=== PATIENT | male | born 1965 | race Caucasian/White ===

== ENCOUNTER 2022-12-02 15:41 | Emergency (ER) | payer BC, SELFPAY ==
[2022-12-02 15:51] VITALS: BP 171/98; PULSE 71; RESP 18; TEMP 36.4; O2SAT 96; BMI 42.7
--- NOTE | 2022-12-02 16:28 | ED_ITS ---
HPI - General Adult General Chief complaint: Lower Extremity Swelling Stated complaint: Intense pain in the back left knee Time Seen by Provider: 12/02/22 15:49 Source: patient Mode of arrival: ambulatory Limitations: no limitations History of Present Illness HPI narrative: 57-year-old male coming in today complaining of knee pain. Patient states that on Monday which is 3 days ago, he stood up off of his chair and had sudden pain in the back of the left knee. Pain is located laterally on the back of the knee and he has some shooting pain that comes and goes down the lateral calf does not reach the ankle. No other injury. He denies any swelling of that leg. He is not short of breath or coughing. He denies any recent travel or surgery. He was seen by a provider yesterday who recommended NSAIDs. He does have an appointment with Orthopedics scheduled for this coming Monday. He felt tired of dealing with the pain and presented to the ER today. Related Data Home Medications Medication Instructions Recorded Confirmed amoxicillin 875 mg-potassium 1 tab PO Q12H 12/02/22 12/02/22 clavulanate 125 mg tablet apixaban 2.5 mg tablet (Eliquis) mg 12/02/22 Allergies Allergy/AdvReac Type Severity Reaction Status Date / Time No Known Drug Allergies Allergy Verified 12/02/22 16:00 Review of Systems Status of ROS: Reports: 6 or more systems reviewed and unremarkable except as noted in History and below Exam Narrative: Exam Narrative: Morbidly obese, well-developed patient in no acute distress. Alert and or iented. Answers questions appropriately. Mood and affect are appropriate. HEENT: Normocephalic atraumatic. Pupils are equally round reactive to light. Extraocular muscles are intact. Conjunctivae are moist without any icterus noted. Extremities: Bilateral lower extremities are without edema. Normal DP and PT pulses. Left knee is without abnormality-there is no swelling, joint effusion, ecchymosis noted. There is no erythema or warmth. He has minimal tenderness to palpation in the posterior lateral knee. He has no tenderness over the calf, no calf swelling. He does have full range of motion with flexion and extension but does cause some discomfort. The knee is not unstable in any way-negative anterior drawer and negative valgus or varus laxity. Skin: Well perfused without any obvious rashes. Const: Vital Signs, click to edit/add: Vital Signs - 24 hr 12/02/22 15:51 Temperature 97.6 F Pulse Rate [Right Pulse Oximeter] 71 Respiratory Rate 18 Blood Pressure [Ri ght Upper Arm] 171/98 H Pulse Oximetry 96 Oxygen Delivery Me thod Room Air Course Course Hospital Course: I did consult with Orthopedics who did not feel that imaging was necessary at this time. They recommended compression, NSAIDs and follow-up as scheduled. Vital Signs Vital signs: Initial Vital Signs Temperature 97.6 F 12/02/22 15:51 Temperature Source Temporal Artery Scan 12/02/22 15:51 Pulse Rate 71 12/02/22 15:51 Respiratory Rate 18 12/02/22 15:51 Blood Pressure 171/98 H 12/02/22 15:51 Blood Pressure Mean 122 12/02/22 15:51 Blood Pressure Position Sitting 12/02/22 15:51 Pulse Oximetry 96 12/02/22 15:51 Oxygen Delivery Method 12/02/22 15:51 Vital Signs Temperature 97.6 F 12/02/22 15:51 Pulse Rate 71 12/02/22 15:51 Respiratory Rate 18 12/02/22 15:51 Blood Pressure 171/98 H 12/02/22 15:51 Pulse Oximetry 96 12/02/22 15:51 Oxygen Delivery Method 12/02/22 15:51 Temperature 97.6 F 12/02/22 15:51 Pulse Rate 71 12/02/22 15:51 Respiratory Rate 18 12/02/22 15:51 Blood Pressure 171/98 H 12/02/22 15:51 Pulse Oximetry 96 12/02/22 15:51 Oxygen Delivery Method 12/02/22 15:51 Medical Decision Making [facility] Narrative Medical decision making narrative: 57-year-old male with knee pain. Discussed compression, NSAIDs and follow up with Orthopedics. Discharge Plan Discharge Clinical Impression: Acute knee pain Patient Disposition: Home, Self-Care Condition: Stable Additional Instructions: Per orthopedic recommendations - for now continue ibuprofen and Tylenol use, ice the area as needed but do not apply ice directly to skin. Use a compression stocking. Follow up with Orthopedics on Monday. Prescriptions: No Action amoxicillin-pot clavulanate 875-125 mg tablet 1 tab PO Q12H Eliquis 2.5 mg tablet Follow Up/Referrals: Marleny Burger MD [Primary Care Provider] - Stand Alone Forms: [employer] Info Instructions
== END 2022-12-02 17:28 | disposition home or self-care (01) ==
PROVIDERS: Emergency Provider Family Medicine; PCP Family Medicine
DX: M25.562 Pain in left knee (principal)
CPT/HCPCS: 99283

== ENCOUNTER 2025-08-31 08:21 | Emergency (ER) | payer BC, SELFPAY ==
--- OUTSIDE RECORDS SUMMARY | 2025-08-31 08:23 | XMS_ITS | Data Portability ---
Author Organization [facility], [facility] Address [address] [place] [address] [address] [place], [place] [address] Care Team Providers Care Special Assets Officer Name Role Phone NORMA CHIU Primary Care Provider Assessment No assessment recorded. Plan of Treatment Reminders Order Date Submit Date Provider Last Modified By Organization Details Last Modified Time Details Appointments None recorded. Lab None recorded. Referral None recorded. Procedures None recorded. Surgeries None recorded. Imaging None recorded. Medication Orders alfuzosin ER 10 mg tablet,ext ended release 24 hr 2023 024 [facility] [id number] [employer], [facility] [address] [place], [address], 4 11:36:21 Patient TargetsNo targets recorded. Patient InstructionsNo instructions recorded. Reason for Referral None Reported. Results Created Date Observation Date Name Description Value Unit Range Abnormal Flag Note LastModifiedBy Organization Detail LastModifiedTime Result Notes None recorded. Problems Name Problem SNOMED Code Status Onset Date Resolution Date Notes Provider Name and Address Organization Details Recorded Time Lower urinary tract symptoms due to benign prostatic hypertrophy 4928454184472 1 Active 2023 Ilir Dasilva MD [address] [place] [address], [phone], [facility] 4 11:35:48 Increased frequency of urination 931099241 Active 2023 Ilir Dasilva MD [address] [place] [address], [phone], [facility] 4 11:35:57 Problem Notes None recorded. Procedures Surgical History Date Name Laterality Status Provider Name and Address Organization Details Recorded Time Bladder Scan completed Maya Marquez [facility] 10/16/2024 11:19:50 Imaging Results None recorded. Procedure Notes None recorded. Medical Equipment None Reported. Allergies No known drug allergies Medications Name Sig Start Date Stop Date Status Note LastModified by Organization Details LastModified Time lisinopril 20 mg tablet TAKE 1 TABLET BY MOUTH EVERY DAY 10/16 completed Not Available Not Available Not Available amlodipine 5 mg tablet TAKE 1 TABLET BY MOUTH EVERY DAY active Not Available Not Available No t Available methylpredn isolone 4 mg tablets in a dose pack TAKE 6 TABLETS ON DAY 1 DIRECTED ON PACKAGE AND DECREASE BY 1 TAB EACH DAY FOR A TOTAL OF 6 DAYS 10/16 completed Not Available Not Available Not Available lisinopril 40 mg tablet TAKE 1 TABLET BY MOUTH EVERY DAY active Not Available Not Available No t Available alfuzosin ER 10 mg tablet,exte nded release 24 hr Take 1 tablet every day by oral route in the evening. 2023 active Not Available Not Available Not Avai lable Eliquis 2.5 mg tablet active Not Available Not Available No t Available Vitals Date Recorded Body height Body mass index (BMI) Body weight Provider Name and Address Organization Details Last Updated DateTime 10/16/2024 190.5 cm 42.5 kg/m2 171995.41 g Maya Marquez [facility] 10/16/2024 11:20:13 Social History Question Answer Notes LastModified by Organizat ion Details LastModified Time Tobacco Smoking Status Never Smoker Maya lundy [facility] 10/16/2024 11:21:27 What Is Your Level Of Caffeine Consumption? Occasional Information not available 10/16/2024 What Was The Date Of Your Most Recent Tobacco Screening? 10/16/2024 Information not available 10/16/2024 Have You Ever Been Counseled For Unhealthy Alcohol Use? No Information not available 10/16/2024 Has Tobacco Cessation Counseling Been Provided? No Information not available 10/16/2024 How Many Days In The Past Year Have You Consumed 5 Or More Drinks? 0 Information not available 10/16/2024 Sex: Unknown Functional Status Question Answer Note LastModified by Organizat ion Details LastModified Time Do you use any illicit or recreational drugs? No Information not available 10/16/2024 Do you or have you ever used any other forms of tobacco or nicotine? No Information not available 10/16/2024 What is your level of alcohol consumption? Occasional Information not available 10/16/2024 Mental Status None recorded. Family History Relationship Description Onset Age of this Age Resolved Age Notes LastModified by Organization Details LastModified Time Father Neoplasm of lung [email or web address] Not available 2023 11:21:07 Medical History Condition Response Sexually Transmitted Infection N Diabetes N Other N Bleeding Disorder N High Blood Pressure Y Kidney Stones N High Cholesterol Y GERD/Acid Reflux N Heart Disease Y Cancer N Lung Disease N Depression N Immunizations Vaccine Type Date Status Note Provider Nam e and Address Organization Details Recorded Time Influenza, split virus, quadrivalent, preservative 0 completed Maya lundy [facility] 10/16/2024 11:20:20 Influenza, MDCK, quadrivalent, preservative 1 completed Maya lundy [facility] 10/16/2024 11:20:20 Influenza, MDCK, quadrivalent, preservative 2 completed Maya lundy [facility] 10/16/2024 11:20:20 COVID-19, mRNA, LNP-S, PF, 100 mcg/0.5mL dose or 50 mcg/0.25mL dose 1 completed Maya lundy [facility] 10/16/2024 11:20:20 COVID-19, mRNA, LNP-S, PF, 100 mcg/0.5mL dose or 50 mcg/0.25mL dose 1 completed Maya lundy [facility] 10/16/2024 11:20:20 COVID-19, mRNA, LNP-S, PF, 100 mcg/0.5mL dose or 50 mcg/0.25mL dose 1 completed Maya lundy [facility] 10/16/2024 11:20:20 Tdap 9 completed Jasonzera Alma lundy, [facility] 10/16/2024 11:20:20 Influenza, split virus, trivalent, preservative 4 completed Dezera Renaeracki nikkie, [facility] 10/16/2024 11:20:20 Td (adult), 2 Lf tetanus toxoid, preservative free, adsorbed 9 completed Jasonzershayan lundy, [facility] 10/16/2024 11:20:20 Influenza, split virus, quadrivalent, PF 3 completed Jasonzershayan lundy, [facility] 10/16/2024 11:20:20 Past Encounters Encounter ID Performer Location Encounter Start Date Encounter Closed Date Diagnosis/Indication Diagnosis SNOMED-CT Code Diagnosis ICD10 Code Diagnosis IMO Codes Diagnosis Note [id number] Ilir Dasilva MD [facility] [address] [facility],[address] [place] [address] 10/16/2024 10:28:07 10/21/2024 10:12:54 Lower urinary tract symptoms due to benign prostatic hypertrophy 5255359631 9101 N40.1 - He has a mixture of obstructiv e and irritative /bladder symptoms.- Prostate is mildly enlarged on exam-Advis ed we start with an alpha-bloc ker, alfuzosin 10 mg daily, and discussed common side effects.-H e was advised to call me in 3 to 4 weeks if he is not seeing improvemen t, and we could consider switching to a medication for overactive bladder, such as Gemtesa or Myrbetriq. -Return to clinic 1 year with PVR, AUA symptom score, sooner as needed Increased frequency of urination 767687759 R35.0 Health Concerns Section Related Observation LastModified by Organization Detai ls LastModified Time None Recorded Concern Status LastModified by Organization Details LastModified Time None Recorded Advance Directives Directive None Recorded Payers Insurance Date Sequence Insurance Name Policy Number Policy Santana Covered Member ID Santana Member ID Guarantor Name 10/21/2024 1 [place] LEYVA (PPO) [id number] Clair Rodriguez [id number] Tim Rodriguez Notes Date Note Type Note Provider Name and Address Organization Details Recorded Time 10/16/2024 text/html New patient referred for chronic urinary symptoms. I reviewed the most recent clinic note from Dr. Burger with [facility] in [place] dated 09/26/2024. He reports chronic symptoms of urinary frequency about every 2 hours, sometimes worse, occasional urgency, weak stream, but denies any straining to void or incontinence. He drinks about 1 cup of coffee every 2 days and does not drink any soda currently. No family history of prostate cancer. No history of diabetes. He weighs 340 pounds. He is on long-term Eliquis for history of blood clot. Recent PSA was 1.51 on 01/30/2024. Urinalysis was normal on 09/26/2024. AUA symptom score today 15, bother 3. Postvoid residual 105 mL. Ilir Dasilva MD [address] [place] [address],[address], [place], [address], [facility] 10/16/2024 13:06:00
--- OUTSIDE RECORDS SUMMARY | 2025-08-31 08:23 | XMS_ITS | Clinical Summary ---
Author Organization [facility] Address [facility] [place] [address] Care Team Providers Care Channel Worker Name Role Phone Marleny Burger MD Primary Care Provide r Allergies No known active allergies Medications apixaban (Eliquis) 2.5 mg tabletIndications: deep venous thrombosis Take 1 Tablet (2.5 mg) by mouth two times daily. 180 Tablet 3 12/26/19 25 Active rosuvastatin 10 mg tabletIndications: Hyperlipidemia, unspecified hyperlipidemia type Take 1 Tablet (10 mg) by mouth at bedtime. 90 Tablet 3 02/21/20 25 Active amLODIPine (NORVASC) 5 mg tabletIndications: HTN (hypertension) Take 1 Tablet (5 mg) by mouth once daily. 90 Tablet 08/30/20 25 Active lisinopriL (PRINIVIL; ZESTRIL) 40 mg tabletIndications: HTN (hypertension) Take 1 Tablet (40 mg) by mouth once daily. 90 Tablet 08/30/20 25 Active amLODIPine (NORVASC) 5 mg tabletIndications: HTN (hypertension) Take 1 Tablet (5 mg) by mouth once daily. 90 Tablet 3 09/26/20 24 025 Discontin ued(Reord er (E-cancel not sent)) lisinopriL (PRINIVIL; ZESTRIL) 40 mg tabletIndications: HTN (hypertension) Take 1 Tablet (40 mg) by mouth once daily. 90 Tablet 3 09/26/20 24 025 Discontin ued(Reord er (E-cancel not sent)) diclofenac topical 1 % gelIndications:Inj ury of right ankle, initial encounter Apply 4 g topically to affected area(s) four times daily. 50 g 03/17/20 25 025 Discontin ued(*Med complete/ Regimen complete/ Level of care change) durable medical equipment (DME)Indications:C losed fracture of right ankle, initial encounter,Injury of right ankle, initial encounter,Nondispl aced fracture of medial malleolus of right tibia, initial encounter for closed fracture,Posterior tibial tendon dysfunction (PTTD) of right lower extremity 02PLR Airlift PTTD brace, Large Right 1 Each 04/10/20 25 025 Discontin ued(*Med complete/ Regimen complete/ Level of care change) Active Problems Problem Noted Date Diagnosed Date Primary osteoarthritis of left knee 01/22/2024 Arthritis of left knee 01/02/2024 Spondylolisthesis of lumbar region - Anterolisthesis L5 on S1 w Pars defect at L5 12/21/2023 Lumbar facet arthropathy 12/21/2023 Sensorineural hearing loss, bilateral 12/28/2022 Acute deep vein thrombosis ( DVT) of femoral vein of right lower extremity 11/07/2019 SINUS BRADYCARDIA 05/09/2006 Encounters Date Type Department Care Team Description 08/22/2025 4:20 PM CDT Office Visit [facility] [address] [place] [address] Katherine Yeager DO Pre-Op Exam (Left total knee replacement 09/18/25); Medication Management (need refills/) 08/22/2025 Travel 08/17/2025 Travel 06/23/2025 Telephone [facility] [address] [place] [address] Bryce Lopez DO Error-please disregard from Last 3 Months Immunizations Immunization Administration Dates Next Due Influenza, IIV3 (Age >=3 years) 08/26/2024 Influenza, IIV4 09/19/2023 Influenza, IIV4 (=>6mos) MDV 08/26/2020 Influenza, Injectable, Mdck, Quadrivalent, W/preservative 08/24/2022,08/24/2021 Td (Age >=7 Years) 02/20/2019 Tdap 03/26/2009 Family History Medical History Relation Name Comments Lung cancer Father Diabetes Maternal Aunt diabetic/ insu steven Cancer Maternal Grandfather lung ca ncer Cancer-colon Maternal Grandfather Diabetes Maternal Grandmother diabeti c/ pills only Other Maternal Grandmother alzheim ers Diabetes Mother Heart Disease Mother pacemaker Other Sister MVA Allergies Son 2 Asthma Son 3 Relation Name Status Comments Daughter Alive Father (Age 47) lung cance r - smoker Maternal Aunt Maternal Grandfather (Age 84) co jamshid cancer Maternal Grandmother Mother Alive Sister (Age 37) MVA Son 1 Alive Son 2 Son 3 Social History Tobacco Use Types Packs/Day Years Used Date Smoking Tobacco: Never Smokeless Tobacco: Former Chew Quit: 11/13/1992 Tobacco Cessation:Counseling Given: Yes Comments:chewed during the summer for about 5 years Alcohol Use Standard Drinks/Week Comments Yes 0 (1 standard drink = 0.6 oz pur e alcohol) light PHQ-2 Answer Date Recorded PHQ-2 TOTAL SCORE 0 09/26/2024 Social Connections Answer Date Recorded Do you often feel lonely or isolated from those around you? 0 03/12/2025 Alcohol Use Answer Date Recorded How often do you have a drink containing alcohol ? 1 08/22/2025 Average Number of Drinks Not on file 025 Frequency of Binge Drinking Not on file 08/13 Financial Resource Strain Answer Date R ecorded Difficulty of Paying Living Expenses 3 03/12/2025 Difficulty of Paying Living Expenses Not on file 03/12/2025 Food Insecurity Answer Date Recorded Do you worry your food will run out before you are able to buy more? 1 03/12/2025 Transportation Needs Answer Date Record ed Does lack of transportation keep you from medica l appointments? 1 03/12/2025 Does lack of transportation keep you from work, meetings or getting things that you need? 1 03/12/2025 Housing Stability Answer Date Recorded What is your housing situation today? 1 03/12/2025 Utilities Answer Date Recorded Do you have trouble paying f or utilities (for example, heat, electricity, water, phone)? 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 Not on file Not on file Obstetrics History Last Filed Vital Signs Vital Sign Reading Time Taken Comments Blood Pressure 145/80 08/22/2025 4:39 PM CDT Pulse 60 08/22/2025 4:39 PM CDT Temperature 36.7 C (98 F) 08/22/2025 4:39 PM CDT Respiratory Rate 18 05/10/2006 9:00 AM CDT Oxygen Saturation 96% 08/22/2025 4:39 PM CDT Inhaled Oxygen Concentration - - Weight 156.5 kg (345 lb) 08/22/2025 4:39 PM CDT Height 191.8 cm (6' 3.5) 12/26/2024 7:00 AM THREADING MACHINE TENDER Body Mass Index 42.55 12/26/2024 7:00 AM THREADING MACHINE TENDER Plan of Treatment Health Maintenance Due Date Last Done Comments HIV for age 15-65 1979 Pneumococcal series for age 50+ (1 of 2 - PCV) 1983 Zoster (shingles) series for age 50+ (1 of 2) 2014 RSV vaccine for adults or (1 - Risk 60-74 years 1-dose series) 2024 COVID-19 vaccine series (2024- season) 2025 10/15/2021, 02/25/2021, 01/28/2021 Influenza Vaccine (#1) 2025 , 09/19/2023, 08/24/2022, Additional history exists Depression screening for age 12+ 09/26/2025 09/26/2024, 09/20/2023, 09/19/2023, Additional history exists BMI (ht and wt on same day) for age 18+ 12/26/2025 12/26/2024, 12/21/2023, 11/02/2023, Additional history exists Fecal testing sDNA-FIT (Cologuard) for age 45-75 09/19/2026 09/19/2023 Tetanus booster 02/20/2029 02/20/2019, 03/26/2009 Lipids for age 45-75 04/22/2030 04/22/2025, 02/05/2025, 01/30/2024, Additional history exists Hepatitis C screening for age 18-79 Completed 07/14/2015 Hepatitis B series for 19+ Aged Out N o longer eligible based on patient's age to complete this topic Procedures Procedure Name Priority Date/Time Associated Diagnosis Comments EKG 12 LEAD Routine 08/26/2025 9:13 AM CDT Pre-op exam HTN (hypertension) CT READING EKG - NO CHARGE, COMP ONLY Routine 08/26/2025 9:12 AM CDT Pre-op exam HTN (hypertension) HEMOGLOBIN A1C Routine 08/22/2025 4:34 PM CDT Prediabetes HEMOGLOBIN Routine 08/22/2025 4:34 PM CDT Pre-op exam BASIC METABOLIC PANEL Routine 08/22/2025 4:34 PM CDT HTN (hypertension) CBC WITH AUTO DIFFERENTIAL Add On 08/22/2025 4:30 PM CDT Pre-op exam CBC WITH AUTO DIFFERENTIAL Add On 08/22/2025 4:30 PM CDT Pre-op exam LIPID PANEL W REFLEX MEASURED LDL Routine 04/22/2025 7:24 AM CDT Hyperlipidemia, unspecified hyperlipidemia type SDNA-FIT EXTERNAL (COLOGUARD) Routine 09/19/2023 6:40 PM THREADING MACHINE TENDER Screening for colon cancer ANTI HCV Routine 07/14/2015 5:24 PM CDT Need for hepatitis C screening test from Last 3 Months or Most Recently Relevant to Health Maintenance Results * EKG 12 LEAD (08/26/2025 9:13 AM CDT) us Katherine Westfallt DO EKG ORD Final Resul t * CT READING EKG - NO CHARGE, COMP ONLY (08/26/2025 9:12 AM CDT) us Katherine Westfallt DO PB - PROVIDER READINGS Gabby l Result * (ABNORMAL) HEMOGLOBIN A1C (08/22/2025 4:34 PM CDT) [facility] HEMOGLOBIN A1C 5.9(H) <5.7 % 08/23/2025 4:55 AM CDT [facility] Comment: For someone without known diabetes, a hemoglobin A1c value between 5.7% and 6.4% is consistent with prediabetes and should be confirmed with a follow-up test. For someone with known diabetes, a value <7% indicates that their diabetes is well controlled. A1c targets should be individualized based on duration of diabetes, age, comorbid conditions, and other considerations. This assay result is consistent with an increased risk of diabetes. Currently, no consensus exists regarding use of hemoglobin A1c for diagnosis of diabetes for children. Blood BLOOD SPECIMEN / Unknown [facility] / Unknown 08/22/2025 4:34 PM CDT 08/22/2025 4:34 PM CDT Katherine Yeager DO CHEMISTRY Final Resul t Performing Organization Address City/[facility]/ZIP Co de Phone Number [facility] [address] [address], [place] [phone] * HEMOGLOBIN (08/22/2025 4:34 PM CDT) [facility] HEMOGLOBIN 15.3 13.2 - 17.1 g/dL 08/23/2025 3:15 AM CDT [facility] MCV 93.7 80.0 - 100.0 fL 08/23/2025 3:15 AM CDT [facility] Blood BLOOD SPECIMEN / Unknown [facility] / Unknown 08/22/2025 4:34 PM CDT 08/22/2025 4:34 PM CDT Katherine Westfallt DO HEMATOLOGY Final Resul t [facility] [address] [address], [place] [phone] * (ABNORMAL) BASIC METABOLIC PANEL (08/22/2025 4:34 PM CDT) [facility] SODIUM 142 135 - 146 mmol/L 08/23/2025 4:08 AM CDT [facility] POTASSIUM 4.4 3.5 - 5.3 mmol/L 08/23/2025 4:08 AM CDT [facility] CARBON DIOXIDE 28 20 - 32 mmol/L 08/23/2025 4:08 AM CDT [facility] GLUCOSE 116(H) 65 - 99 mg/dL 08/23/2025 4:08 AM CDT [facility] Comment: Fasting reference interval For someone without known diabetes, a glucose value between 100 and 125 mg/dL is consistent with prediabetes and should be confirmed with a follow-up test. CALCIUM 9.1 8.6 - 10.3 mg/dL 08/23/2025 4:08 AM CDT [facility] CREATININE 0.77 0.70 - 1.35 mg/dL 08/23/2025 4:08 AM CDT [facility] BUN/CREATININE RATIO SEE NOTE: 6 - 22 (calc) 08/23/2025 4:08 AM CDT [facility] Comment: Not Reported: BUN and Creatinine are within reference range. EGFR 102 > OR = 60 mL/min/1. 73m2 08/23/2025 4:08 AM CDT [facility] UREA NITROGEN (BUN) 22 7 - 25 mg/dL 08/23/2025 4:08 AM CDT [facility] ELECTROLYTE BALANCE 7 7 - 17 mmol/L (calc) 08/23/2025 4:08 AM CDT [facility] CHLORIDE 107 98 - 110 mmol/L 08/23/2025 4:08 AM CDT [facility] Blood BLOOD SPECIMEN / Unknown [facility] / Unknown 08/22/2025 4:34 PM CDT 08/22/2025 4:34 PM CDT us Katherine Gee Detert DO CHEMISTRY Final Resul t [facility] [address] [place] [address], [place] [phone] * CBC WITH AUTO DIFFERENTIAL (08/22/2025 4:30 PM CDT) Pathologist [facility] WHITE BLOOD CELL COUNT 8.1 3.8 - 10.8 Thousand/u L 08/23/2025 3:22 AM CDT [facility] RED BLOOD CELL COUNT 4.89 4.20 - 5.80 Million/uL 08/23/2025 3:22 AM CDT [facility] HEMOGLOBIN 15.4 13.2 - 17.1 g/dL 08/23/2025 3:22 AM CDT [facility] HEMATOCRIT 46.1 38.5 - 50.0 % 08/23/2025 3:22 AM CDT [facility] MCV 94.3 80.0 - 100.0 fL 08/23/2025 3:22 AM CDT [facility] MCH 31.5 27.0 - 33.0 pg 08/23/2025 3:22 AM CDT [facility] MCHC 33.4 32.0 - 36.0 g/dL 08/23/2025 3:22 AM CDT [facility] Comment: For adults, a slight decrease in the calculated MCHC value (in the range of 30 to 32 g/dL) is most likely not clinically significant; however, it should be interpreted with caution in correlation with other red cell parameters and the patient's clinical condition. RDW 12.6 11.0 - 15.0 % 08/23/2025 3:22 AM CDT [facility] PLATELET COUNT 231 140 - 400 Thousand/u L 08/23/2025 3:22 AM CDT [facility] MPV 11.4 7.5 - 12.5 fL 08/23/2025 3:22 AM CDT [facility] NEUTROPHILS 57.3 % 08/23/2025 3:22 AM CDT [facility] LYMPHOCYTES 32.5 % 08/23/2025 3:22 AM CDT [facility] MONOCYTES 8.3 % 08/23/2025 3:22 AM CDT [facility] EOSINOPHILS 1.7 % 08/23/2025 3:22 AM CDT [facility] BASOPHILS 0.2 % 08/23/2025 3:22 AM CDT [facility] ABSOLUTE NEUTROPHILS 4641 1500 - 7800 cells/uL 08/23/2025 3:22 AM CDT [facility] ABSOLUTE LYMPHOCYTES 2633 850 - 3900 cells/uL 08/23/2025 3:22 AM CDT [facility] ABSOLUTE MONOCYTES 672 200 - 950 cells/uL 08/23/2025 3:22 AM CDT [facility] ABSOLUTE EOSINOPHILS 138 15 - 500 cells/uL 08/23/2025 3:22 AM CDT [facility] ABSOLUTE BASOPHILS 16 0 - 200 cells/uL 08/23/2025 3:22 AM CDT [facility] Blood BLOOD SPECIMEN / Unknown [facility] / Unknown 08/22/2025 4:30 PM CDT 08/22/2025 5:32 PM CDT Katherine Marlen Westfallt DO HEMATOLOGY Final Resul t [facility] [address] [place] [address], [place] [phone] * LIPID PANEL W REFLEX MEASURED LDL (04/22/2025 7:24 AM CDT) CHOLESTEROL, TOTAL 134 <200 mg/dL [facility] HDL CHOLESTEROL 44 > OR = 40 mg/dL [facility] TRIGLYCERIDES 90 <150 mg/dL [facility] LDL-CHOLESTEROL 73 mg/dL (calc) [facility] Comment: Reference range: <100 Desirable range <100 mg/dL for primary prevention; <70 mg/dL for patients with CHD or diabetic patients with > or = 2 CHD risk factors. LDL-C is now calculated using the Tl-Mccain calculation, which is a validated novel method providing better accuracy than the Friedewald equation in the estimation of LDL-C. Tl ANDUJAR et al. MARGARITO. 2013;310(19): 4033-7394 (http://education.MaidSafe.spigit/faq/NJJ145) CHOL/HDLC RATIO 3.0 <5.0 (calc) [facility] NON HDL CHOLESTEROL 90 <130 mg/dL (calc) [facility] Comment: For patients with diabetes plus 1 major ASCVD risk factor, treating to a non-HDL-C goal of <100 mg/dL (LDL-C of <70 mg/dL) is considered a therapeutic option. Blood BLOOD SPECIMEN / Unknown 04/22/2025 7:24 AM CDT 04/22/2025 7:24 AM CDT Marleny Burger MD CHEMISTRY Final Result [facility] [address] [place] [address], [facility] [address] [place] [address] * SDNA-FIT EXTERNAL (COLOGUARD) (09/19/2023 6:40 PM THREADING MACHINE TENDER) NONINV COLON CA DNA+OCC BLD SCRN STL-IMP Negative Negative 09/28/2023 9:20 AM THREADING MACHINE TENDER [facility] (CLIA #:[id number]) Comment: NEGATIVE TEST RESULT. A negative Cologuard result indicates a low likelihood that a colorectal cancer (CRC) or advanced adenoma (adenomatous polyps with more advanced pre-malignant features) is present. The chance that a person with a negative Cologuard test has a colorectal cancer is less than 1 in 1500 (negative predictive value >99.9%) or has an advanced adenoma is less than 5.3% (negative predictive value 94.7%). These data are based on a prospective cross-sectional study of 10,000 individuals at average risk for colorectal cancer who were screened with both Cologuard and colonoscopy. (Arik Quiroz al, N Engl J Med 2014;370(14):0066-5315) The normal value (reference range) for this assay is negative. COLOGUARD RE-SCREENING RECOMMENDATION: Periodic colorectal cancer screening is an important part of preventive healthcare for asymptomatic individuals at average risk for colorectal cancer. Following a negative Cologuard result, the [place] [employer] Society and U.S. Multi-Society Task Force screening guidelines recommend a Cologuard re-screening interval of 3 years. References: [place] [employer] Guideline for Colorectal Cancer Screening: https://www.cancer.org/cancer/uiwqm-iasqfy-nzmrvw/whuigwyam-hhfudykfu-itjqabh/ac s-rec ommendations.html.; Rush SIMON, Shaquille CANALES, Crys JEAN BAPTISTE, Colorectal Cancer Screening: Recommendations for Physicians and Patients from the U.S. Multi-Society Task Force on Colorectal Cancer Screening , Am J Gastroenterology 2017; 112:2404-7835. TEST DESCRIPTION: Composite algorithmic analysis of stool DNA-biomarkers with hemoglobin immunoassay. Quantitative values of individual biomarkers are not reportable and are not associated with individual biomarker result reference ranges. Cologuard is intended for colorectal cancer screening of adults of either sex, 45 years or older, who are at average-risk for colorectal cancer (CRC). Cologuard has been approved for use by the U.S. FDA. The performance of Cologuard was established in a cross sectional study of average-risk adults aged 50-84. Cologuard performance in patients ages 45 to 49 years was estimated by sub-group analysis of near-age groups. Colonoscopies performed for a positive result may find as the most clinically significant lesion: colorectal cancer [4.0%], advanced adenoma (including sessile serrated polyps greater than or equal to 1cm diameter) [20%] or non- advanced adenoma [31%]; or no colorectal neoplasia [45%]. These estimates are derived from a prospective cross-sectional screening study of 10,000 individuals at average risk for colorectal cancer who were screened with both Cologuard and colonoscopy. (Arik Evans et al, N Engl J Med 2014;370(14):4164-8141.) Cologuard may produce a false negative or false positive result (no colorectal cancer or precancerous polyp present at colonoscopy follow up). A negative Cologuard test result does not guarantee the absence of CRC or advanced adenoma (pre-cancer). The current Cologuard screening interval is every 3 years. ([place] [employer] Society and U.S. Multi-Society Task Force). Cologuard performance data in a 10,000 patient pivotal study using colonoscopy as the reference method can be accessed at the following location: www.[employer].spigit/results. Additional description of the Cologuard test process, warnings and precautions can be found at www.Umbelrd.com. Stool specimen (specimen) (Rectum) 09/19/2023 6:40 PM THREADING MACHINE TENDER 09/21/2023 2:33 PM THREADING MACHINE TENDER us Marleny Burger MD URINE Final Result [facility] (CLIA #:[id number]) [address] [place] [address], * ANTI HCV [58351.2] (07/14/2015 5:24 PM CDT) HEPATITIS C ANTIBODY Non-Reacti ve Non-Reacti ve 07/15/2015 1:57 PM CDT [facility] Blood specimen (specimen) BLOOD SPECIMEN / Unknown [facility] / Unknown 07/14/2015 5:24 PM CDT 07/14/2015 5:24 PM CDT Narrative [facility] - 07/15/2015 1:57 PM CDT Antibodies to HCV not detected; does not exclude the possibility of exposure to HCV. us Bakari Mccurdy MD SEND OUTS Final Resu lt [facility] [address] [place] [address], from Last 3 Months or Most Recently Relevant to Health Maintenance Insurance [address] [place] [id number] [facility] [place] [id number] Advance Directives * Full Code (Latest Code Status on File) Date Activated Date Inactivated Comments 05/09/2006 5:43 PM 05/10/2006 1:49 PM Care Teams Channel Worker Relationship Specialty Start Date End Date Marleny Burger MD [address] [place] [address] PCP - General Family Practice 11/19/12
[2025-08-31 08:39] VITALS: BP 149/88; PULSE 67; RESP 22; TEMP 36.9; O2SAT 95; BMI 42.2
--- NOTE | 2025-08-31 08:55 | CRLHL7_ITS ---
For Patients: As a result of the Century Cures Act, medical imaging exams and procedure reports are released immediately into your electronic medical record. You may view this report before your referring provider. If you have questions, please contact your health care provider. INDICATION: History of herniated discs, pain. COMPARISON: None. TECHNIQUE: Three view lumbar spine radiographs including AP, lateral, lateral lumbosacral spine. FINDINGS: There are 5 lumbar type vertebral bodies. Unfused posterior elements at L5, a normal variant. No fracture. Normal alignment. Multilevel disc space narrowing, most severe at L5-S1. There is multilevel endplate remodeling with small non bridging osteophytes. Severe L4-5 and L5-S1 facet arthritis. Bilateral SI joint osteoarthritis. Normal bone mineralization. No focal bone lesions. Atherosclerosis. IMPRESSION: Disc and facet degeneration in the lumbar spine. No acute appearing bone findings. Dictated by Carrol Fofana MD @ 08/31/2025 10:07:31 AM (Electronically Signed)
--- NOTE | 2025-08-31 08:56 | ED.GENADULT ---
HPI - General Adult General Chief complaint: Back Injury/Pain Stated complaint: Lower back pain Time Seen by Provider: 08/31/25 08:24 History of Present Illness HPI narrative: Patient is a pleasant 60 year white male who for the last 3 or 4 days has had significant left low back pain. Does not really get any radicular symptoms. 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 He is actually scheduled to get his knee replaced on the 18 of September. He will stop his Eliquis on about the 14 of September. He has had a recent upper respiratory infection was doing a bit of coughing and subsequent developed this left low back pain. No real radicular symptoms, he does not describe bowel or bladder incontinence or perineal numbness. He presents to ER pretty uncomfortable with his low back and unable find a comfortable position. He has had a history of herniated disc in the past that was treated with Mets steroids and PT. This successfully resolved a couple years ago Related Data Home Medications ?Medication ?Instructions ?Recorded ?Confirmed lisinopril 40 mg tablet 40 mg PO DAILY 08/31/25 08/31/25 rosuvastatin 10 mg tablet 10 mg PO QPM 08/31/25 08/31/25 Allergies Allergy/AdvReac Type Severity Reaction Status Date / Time No Known Drug Allergies Allergy Verified 08/31/25 08:48 Review of Systems Status of ROS: Reports: 6 or more systems reviewed and unremarkable except as noted in History and below [facility] Medical History Deep vein thrombosis (DVT) of femoral vein ?I82.419 - Acute embolism and thrombosis of unspecified femoral vein (ICD-10) History of pulmonary embolism ?Z86.711 - Personal history of pulmonary embolism (ICD-10) DVT (deep venous thrombosis) ?I82.409 - Acute embolism and thrombosis of unspecified deep veins of unspecified lower extremity (ICD-10) Surgical History H/O arthroscopy of right knee ?Z98.890 - Other specified postprocedural states (ICD-10) Social History Smoking Status: Never smoker Non-prescribed substance use: denies use Exam Narrative: Exam Narrative: Objective: In general patient monitors testing discomfort he is alert or x3 His left low back shows some mild paravertebral muscle tenderness He has got normal strength, sensation, symmetric reflexes in the lower extremities Negative straight leg raise on the left. Const: Vital Signs, click to edit/add: Vital Signs - 24 hr 08/31/25 08:39 Temperature 98.5 F Pulse Rate [Pulse Oximeter] 67 Respiratory Rate 22 Blood Pressure [Ri ght Upper Arm] 149/88 H Pulse Oximetry 95 Oxygen Delivery Me thod Room Air Course Vital Signs Vital signs: Initial Vital Signs Temperature 98.5 F 08/31/25 08:39 Temperature Source Temporal Artery Scan 08/31/25 08:39 Pulse Rate 67 08/31/25 08:39 Respiratory Rate 22 08/31/25 08:39 Blood Pressure 149/88 H 08/31/25 08:39 Blood Pressure Mean 108 H 08/31/25 08:39 Blood Pressure Position Sitting 08/31/25 08:39 Pulse Oximetry 95 08/31/25 08:39 Oxygen Delivery Method Room Air 08/31/25 08:39 Vital Signs Temperature 98.5 F 08/31/25 08:39 Pulse Rate 67 08/31/25 08:39 Respiratory Rate 22 08/31/25 08:39 Blood Pressure 149/88 H 08/31/25 08:39 Pulse Oximetry 95 08/31/25 08:39 Oxygen Delivery Method Room Air 08/31/25 08:39 Temperature 98.5 F 08/31/25 08:39 Pulse Rate 67 08/31/25 08:39 Respiratory Rate 22 08/31/25 08:39 Blood Pressure 149/88 H 08/31/25 08:39 Pulse Oximetry 95 08/31/25 08:39 Oxygen Delivery Method Room Air 08/31/25 08:39 Medications Administered Medications: Discontinued Medications Generic Name Dose Route Start Last Admin Trade Name Freq PRN Reason Stop Dose Admin Ketorolac Tromethamine 30 mg 08/31/25 08:54 08/31/25 09:11 Ketorolac 30 Mg/Ml Inj IM 08/31/25 08:55 30 mg ONCE ONE Administration Morphine Sulfate 10 mg 08/31/25 08:54 08/31/25 09:11 Morphine 10 Mg/Ml Inj IM 08/31/25 08:55 10 mg ONCE ONE Administration Prednisone 50 mg 08/31/25 08:55 08/31/25 09:11 Prednisone 10 Mg Tablet PO 08/31/25 08:56 50 mg ONCE ONE Administration Medical Decision Making MDM Narrative Medical decision making narrative: [age] year white male with history of lumbar spondylosis and history of PE on Eliquis, with a scheduled knee replacement early September. At this point he has got an acute exacerbation of left low back pain, I certainly with his coughing and recent illness could have had a disc herniation, but he does not have a lot of radicular symptoms. I think for today we would give him morphine IM Toradol IM and will have him get an x-ray of his back. Given his large size I think could be appropriate to make sure does not have a compression fracture other bony injury. This is unlikely. He will need rest, light activity, icing, I would avoid steroids at this point given he is close to his surgery, but I will give 1 dose now and then give him some pain medication for home. He can also use ibuprofen or Aleve sparingly for the next couple of days. He needs to be off these prior to his surgery at the appropriate time. Addendum 10:15 a.m.: By my review independently is x-ray shows straightening of the normal lumbar lordosis L5-S1 degenerative disc disease and facet arthropathy. Patient is markedly better. Will allow to go home take [place] as needed. He will follow his preop instructions for his knee surgery. A recommend position of comfort, gentle activity, no driving while on the medication or 6-8 hours after you have taken your last dose. Light activity today as mention. Ice aggressively, update your regular doctor next few days not improving problems concerns can return to the ED. Discharge Plan Discharge Clinical Impression: Low back pain Additional Instructions: Light activity, fluids, ice 5-10 minutes 5 times a day for the next several days, may use the oral pain medication as needed for pain, return if problems or concerns, update her regular doctor next few days. Activity Level: Light activity Discharge Diet: Regular Prescriptions: No Action lisinopril 40 mg tablet 40 mg PO DAILY rosuvastatin 10 mg tablet 10 mg PO QPM Follow Up/Referrals: Marleny Burger MD [Primary Care Provider, Family Practice]
== END 2025-08-31 10:59 | disposition home or self-care (01) ==
PROVIDERS: Emergency Provider Family Medicine; PCP Family Medicine
DX: M54.50 Low back pain, unspecified (principal)
CPT/HCPCS: 72100; 96372; 99284; J1885; J2270; J7512